=== PATIENT | male | born 1975 | race Caucasian/White ===

== ENCOUNTER 2023-08-31 12:52 | Emergency (ER) | payer OTHER, SELFPAY ==
[2023-08-31 13:38] LABS: Absolute Basophils 0.1 K/uL (0-0.5); Absolute Eosinophils 0.1 K/uL (0-0.5); Absolute Lymphocytes (CBC) 1.6 K/uL (0.7-4.9); Absolute Monocytes 0.6 K/uL (0.1-1.3); Absolute Neutrophil 6.9 K/uL (1.8-8.0); Basophils % 0.7 % (0-1.3); Eosinophils % 0.8 % (0-4.4); Hematocrit 56.1 % (39.6-49.0); Hemoglobin 18.8 g/dL (13.6-17.9); Lymphocytes % 16.8 % (15.3-44.8); MCH 30.9 pg (27.0-35.0); MCHC 33.5 g/dL (32.0-36.0); MPV 7.7 fL (7.6-11.3); Monocytes % 6.8 % (3.3-12.3); Neutrophils % 74.9 % (41.7-73.7); Nucleated Red Blood Cells % 0.4 % (0-0); Platelets 251 thou/uL (152-406); RBC Red Blood Cell Count 6.09 M/uL (4.33-5.43); Red Cell Distribution Width 15.8 % (12.1-15.2)
[2023-08-31 13:49] LABS: PT Prothrombin Time 11.7 SECONDS (9.5-12.5); Protime INR 1.07
[2023-08-31] MEDS ORDERED: ONDANSETRON 4 MG/2 ML VIAL ONE (14:09)
[2023-08-31] MEDS ORDERED: MORPHINE 4 MG/ML SYR ONE (14:10)
--- NOTE | 2023-08-31 14:20 | RAD REPORT ---
EXAM DESCRIPTION: US - Extremity Venous Uni Ltd - 08/31/2023 2:14 pm CLINICAL HISTORY: Pain;Swelling Leg swelling and edema. COMPARISON: <Comparisons> FINDINGS: Right lower extremity venous system was interrogated with Doppler technique. Normal flow, compressibility and augmentation was noted. There is no DVT present. IMPRESSION: No evidence of right lower extremity deep venous thrombosis.
--- NOTE | 2023-08-31 14:20 | RAD REPORT ---
EXAM DESCRIPTION: US - Lower Extremity Artery Uni Ltd - 08/31/2023 2:14 pm CLINICAL HISTORY: Pain;Swelling Pain and swelling COMPARISON: <Comparisons> FINDINGS: Triphasic waveforms are seen throughout the right lower extremity arterial system. No sign ificant stenosis or occlusion. IMPRESSION: No flow abnormality seen.
--- NOTE | 2023-08-31 14:47 | RAD REPORT ---
EXAM DESCRIPTION: CT - Abdomen Angio - 08/31/2023 2:35 pm CLINICAL HISTORY: Leg pain and swelling rule out AAA/iliac vascular problem COMPARISON: Pelvis Angio dated 08/31/2023; Lower Ext Angio dated 08/31/2023; Lower Extremity Artery Un i Ltd dated 08/31/2023; Extremity Venous Uni Ltd dated 08/31/2023 TECHNIQUE: CT angiography of the abdominal aorta with right lower extremity runoff was performed wit h MIPs. All CT scans are performed using dose optimization technique as appropriate and may include automated exposure control or mA/KV adjustment according to patient size. FINDINGS: The lung bases are clear. The liver, spleen, pancreas, adrenal glands and kidneys are with in normal limits. Abdominal aorta is normal in caliber. There is no evidence of aortic aneurysm or dissection. Mild ath erosclerosis distal abdominal aorta and both iliac vessels. Both external iliac arteries are patent. Both superficial femoral arteries are patent throughout. Bot h popliteal arteries are widely patent. Trifurcation vessels on the right below the level of the popl iteal vessel are patent.There is no significant flow abnormality seen. Heterotopic bone is seen adjacent to the shaft of the right femur presumably related to previous trau ma/myositis ossificans. No soft tissue mass. No aggressive bone lesion. IMPRESSION: No significant flow abnormality is detected. Prominent heterotopic bone seen posteromedial of the midshaft of the right femur may represent myosit is ossificans or finding related to previous trauma or intervention.
[2023-08-31] MEDS ORDERED: GABAPENTIN 300 MG CAP ONE (15:02)
[2023-08-31] MEDS ORDERED: HYDROCODONE/APAP 5/325 MG TAB ONE (15:02)
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
--- NOTE | 2023-08-31 15:04 | ER ---
Nurse's Notes [facility] Name: Joseph Lux Age: 47 yrs Sex: Male : 1975 Arrival Date: 08/31/2023 Time: 12:52 Bed 17 Private MD: Diagnosis: Pain in right leg Presentation: 08/30 13:09 Chief complaint: Patient states: he is having right upper leg pain for a few weeks. ap3 patient rates the pain as a 9/10 on the pain scale. Coronavirus screen: At this time, the client does not indicate any symptoms associated with coronavirus-19. Ebola Screen: No symptoms or risks identified at this time. Initial Sepsis Screen: Does the patient meet any 2 criteria? HR > 90 bpm. Does the patient have a suspected source of infection? No. Patient's initial sepsis screen is negative. Risk Assessment: Do you want to hurt yourself or someone else? Patient reports no desire to harm self or others. Onset of symptoms is unknown. 13:09 Method Of Arrival: Ambulatory ap3 13:09 Acuity: CUONG 3 ap3 Triage Assessment: 13:13 General: Appears uncomfortable, Behavior is calm, cooperative, appropriate for age. ap3 Pain: Complains of pain in medial aspect of right thigh Pain currently is 9 out of 10 on a pain scale. Neuro: Level of Consciousness is awake, alert, obeys commands, Oriented to person, place, time, situation. Cardiovascular: Patient's skin is warm and dry. Respiratory: Airway is patent Respiratory effort is even, unlabored, Respiratory pattern is regular, symmetrical. Historical: - Allergies: 13:12 Lisinopril; ap3 - Home Meds: 13:12 None [Active]; ap3 - PMHx: 13:12 Hypertensive disorder; ap3 - Immunization history:: Client reports having NOT received the Covid vaccine. Flu vaccine is not up to date. - Social history:: Smoking status: Patient reports the use of cigarette tobacco products, smokes two packs cigarettes per day. - Family history:: not pertinent. - Hospitalizations: : No recent hospitalization is reported. Screenin:08 [facility] ED Fall Risk Assessment (Adult) History of falling in the last 3 months, kc6 including since admission No falls in past 3 months (0 pts) Confusion or Disorientation No (0 pts) Intoxicated or Sedated No (0 pts) Impaired Gait No (0 pts) Mobility Assist Device Used No (0 pt) Altered Elimination No (0 pt) Score/Fall Risk Level 0 - 2 = Low Risk. Abuse screen: Denies threats or abuse. Denies injuries from another. Nutritional screening: No deficits noted. Tuberculosis screening: No symptoms or risk factors identified. Assessment: 13:26 General: Appears in no apparent distress. uncomfortable, well groomed, well developed, kc6 Behavior is calm, cooperative, appropriate for age. Pain: Complains of pain in right leg and medial aspect of right thigh Pain currently is 9 out of 10 on a pain scale. Neuro: Level of Consciousness is awake, alert, obeys commands, Oriented to person, place, time, situation, Appropriate for age. Cardiovascular: Capillary refill < 3 seconds. Respiratory: Airway is patent Trachea midline Respiratory effort is even, unlabored, Respiratory pattern is regular, symmetrical. GI: No signs and/or symptoms were reported involving the gastrointestinal system. : No signs and/or symptoms were reported regarding the genitourinary system. EENT: No signs and/or symptoms were reported regarding the EENT system. Derm: No signs and/or symptoms reported regarding the dermatologic system. Skin is intact, is healthy with good turgor, Skin is pink, warm \T\ dry. Musculoskeletal: No signs and/or symptoms reported regarding the musculoskeletal system. Circulation, motion, and sensation intact. Capillary refill < 3 seconds, Range of motion: intact in all extremities. 14:26 Reassessment: Patient appears in no apparent distress at this time. No changes from kc6 previously documented assessment. Patient and/or family updated on plan of care and expected duration. Pain level reassessed. Patient is alert, oriented x 3, equal unlabored respirations, skin warm/dry/pink. Vital Signs: 13:09 BP 175 / 119; Pulse 102; Resp 18; Temp 98.4; Pulse Ox 97% ; Weight 132 kg; Pain 9/10; ap3 15:12 BP 159 / 100; Pulse 95; Resp 16 S; Pulse Ox 96% on R/A; kc6 13:09 Pain Scale: Adult ap3 ED Course: 12:54 Patient arrived in ED. ra3 12:56 Lloyd Carmen MD is Attending Physician. rn 13:08 Aguayo, Bridgette, RN is Primary Nurse. kc6 13:08 Patient maintains SpO2 saturation greater than 95% on room air. kc6 13:09 Patient has correct armband on for positive identification. Placed in gown. Bed in low kc6 position. Call light in reach. Side rails up X 1. Client placed on continuous cardiac and pulse oximetry monitoring. NIBP monitoring applied. 13:12 Triage completed. ap3 13:14 Arm band placed on right wrist. ap3 13:29 Initial lab(s) drawn, by me, sent to lab. Inserted saline lock: 22 gauge in left ap3 antecubital area, using aseptic technique. Blood collected. 14:16 Extremity Venous Uni Ltd US In Process Unspecified. EDMS 14:16 Lower Extremity Artery Uni Ltd US In Process Unspecified. EDMS 14:37 Lower Ext Angio In Process Unspecified. EDMS 14:37 Abdomen Angio In Process Unspecified. EDMS 14:37 Pelvis Angio In Process Unspecified. EDMS 15:12 No provider procedures requiring assistance completed. IV discontinued, intact, kc6 bleeding controlled, No redness/swelling at site. Pressure dressing applied. Administered Medications: 14:13 Drug: morphine IVP or IV 4 mg IVP once over 4 mins Route: IVP; Infused Over: 4 mins; kc6 Site: left antecubital; 14:55 Follow up: Response: No adverse reaction; Pain is unchanged, physician notified kc6 14:13 Drug: Ondansetron IVP 4 mg IVP once; over 2 minutes Route: IVP; Site: left antecubital; kc6 14:55 Follow up: Response: No adverse reaction kc6 15:04 Drug: HYDROcodone-acetaminophen PO 5 mg-325 mg 1 tabs PO once Route: PO; kc6 15:04 Drug: Gabapentin PO 300 mg PO once Route: PO; kc6 Medication: 15:12 VIS not applicable for this client. kc6 Outcome: 15:03 Discharge ordered by . rn 15:12 Discharged to home ambulatory, kc6 15:12 Condition: good 15:12 Discharge instructions given to patient, Instructed on discharge instructions, follow up and referral plans. medication usage, Demonstrated understanding of instructions, follow-up care, medications, Prescriptions given X 3, 15:12 Patient left the ED. kc6 Signatures: Dispatcher [employer] EDMS Lloyd Carmen MD MD rn Prokisch, Amanda, RN RN ap3 Bridgette Aguayo, RN RN kc6 Nettie Gomes
[2023-08-31 15:27] VITALS: BP 159/100; TEMP 98.4; O2SAT 96
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
== END 2023-08-31 15:12 | disposition home or self-care (01) ==
LOC: ER 12:52
DX: M79.651 Pain in right thigh (principal)
CPT/HCPCS: 36415; 72191; 73706; 74175; 80048; 85025; 85610; 85730; 93926; 93971; 96374; 96375; 99285; J2405; Q9967